=== PATIENT | male | born 1955 | race Caucasian/White ===

== ENCOUNTER 2021-08-21 14:30 | Emergency (ER) | payer OTHER, MEDICARE ==
[2021-08-21] MEDS ORDERED: Morphine 4 MG/ML VIAL IVPUSH ONE (14:32)
[2021-08-21] MEDS ORDERED: Ondansetron 4 MG/2 ML SDV IVPUSH ONE (14:32)
== END 2021-08-21 15:37 | disposition home or self-care (01) ==
LOC: MW.ED 14:30
DX: S00.31XA Abrasion of nose, initial encounter (principal); Z88.8 Allergy status to other drugs, medicaments and biological substances; Z88.6 Allergy status to analgesic agent; Z88.3 Allergy status to other anti-infective agents; V29.9XXA Motorcycle rider (driver) (passenger) injured in unspecified traffic accident, initial encounter; Y92.410 Unspecified street and highway as the place of occurrence of the external cause
CPT/HCPCS: 70450; 72125; 72170; 96374; 96375; 99284; J2270; J2405